=== PATIENT | female | born 1950 | race Caucasian/White ===

== ENCOUNTER 2024-09-07 21:31 | Emergency (ER) | payer MEDICARE, SELFPAY ==
--- NOTE | ~2024-09-07 | XR_ITS ---
CLINICAL HISTORY: pain post fall 3 view right elbow Comparison: None Findings: Large joint effusion and the suggestion of a radial neck fracture. IMPRESSION: Large joint effusion. Questioned mildly impacted radial neck fracture. This document has been electronically signed by: Hi Lambert MD on 09/07/2024 22:55:11
[2024-09-07 21:56] VITALS: BP 147/70; PULSE 88; RESP 14; TEMP 37.2; O2SAT 97; BMI 17.4
--- NOTE | 2024-09-08 01:23 | PC.NURSE ---
Pt a&ox4, no signs of distress. Pt reports 10/10 pain when attempts to move the right arm Pts family member at bedside Plan of care ongoing.
--- NOTE | 2024-09-08 01:32 | ED.GENADULT ---
HPI - General Adult General Chief complaint: Fall Stated complaint: fall, R arm/elbow pain Time Seen by Provider: 09/08/24 01:31 History of Present Illness ED Provider: Abdoul JONES narrative: The patient is a 73-year-old woman who is generally in good health. She is visiting from [place]. She arrived at the airport in [place] today and tripped on a suitcase falling forward, landing on her right knee and her right outstretched hand. In landing on her right hand she sustained pain in her right elbow. She did not hit her head. No significant neck pain. Aside from the pain in her elbow she does not have a significant sense of injury. No numbness or tingling in the hand. Related Data Allergies Allergy/AdvReac Type Severity Reaction Status Date / Time quinine Allergy Anaphylaxis Verified 09/07/24 22:01 Review of Systems Review of Systems: Yes all other systems are reviewed and are negative PMFSH Social History Social History Smoked in Last 30 Days: Yes Use of substances other than those prescribed or required for medical reasons: No Advance Directives: No Advance Directives Information Provided: Yes Physical Exam ED Vital Signs: Vital Signs - 24 hr 09/07/24 21:56 09/08/24 02:25 09/08/24 02:26 Temperature 98.9 F 97.6 F 97.6 F Pulse Rate 88 89 89 Respiratory Rate 14 16 16 Blood Pressure 147/70 H 132/72 132/72 Pulse Oximetry 97 96 96 Oxygen Delivery Method Room Air Room Air Room Air BMI result Body Mass Index 17.4 Const Other: the patient is a slim 73-year-old woman who looks as though she is ordinarily in good health. HENMT Other: No sign of trauma to the head or the face. Eyes General: appearance normal, both eyes and all related structures Neck Other: No C-spine tenderness Resp Effort & Inspection: normal respiratory effort Skin Other: skin is intact. Neuro Other: The patient is awake and alert with normal mental status. Normal cranial nerves. She has normal strength and sensation in the right hand. Extrem Other: The patient has some generalized tenderness around the right elbow. No gross deformity. Tenderness may be maximal at the region of the radial head. Range of motion is diminished. Medications Administered Discontinued Medications Generic Name Dose Route Start Last Admin Trade Name Freq PRN Reason Stop Dose Admin Acetaminophen 650 mg 09/08/24 02:03 09/08/24 02:12 Acetaminophen 325 Mg Tablet PO 09/08/24 02:04 650 mg ONCE ONE Administration Ibuprofen 400 mg 09/08/24 02:03 09/08/24 02:12 Ibuprofen 400 Mg Tablet PO 09/08/24 02:04 400 mg ONCE ONE Administration Medical Decision Making Medical Decision Making MDM Narrative: The patient tripped and fell and landed on an outstretched right hand and presents with right elbow pain. An x-ray shows anterior posterior fat pads suggestive of a joint effusion. There is a possible suggestion of a impacted radial head fracture. I think the patient likely has an impacted radial head fracture. I explained the x-ray findings to the patient. She is visiting from [place]. She will be treated with a sling. She was given a disc of her x-rays for follow-up when she returns to [place] in several days. Discharge Plan Discharge Clinical Impression: Closed fracture of neck of right radius Patient Disposition: Home, Self-Care Instructions: Elbow Fracture (ED) Additional Instructions: The x-ray of your right elbow shows swelling of the joint which is suggestive of a probable fracture of the near end of the radius bone. Please wear the sling provided to rest the arm. You may ice the area of injury to help reduce swelling and pain. Always have a piece of dry cloth between your skin and the ice bag. You may use ibuprofen and acetaminophen as needed for pain. Please contact your regular doctor to help arrange follow up when you return to [place]. Get checked again if significantly worse at any time. Interventions: ED Discharge Assessment Last Done: 09/08/24 02:26 Discharge Date/Time: 09/08/24 02:27 Print Language: Tamazight
[2024-09-08] MEDS: Ibuprofen 400 MG TABLET PO (02:12)
[2024-09-08] MEDS: Acetaminophen 325 MG TABLET 650 MG PO (02:12)
--- NOTE | 2024-09-08 02:14 | PC.NURSE ---
Pt medicated per [facility] Plan of care ongoing
[2024-09-08 02:25] VITALS: BP 132/72; PULSE 89; RESP 16; TEMP 36.4; O2SAT 96
[2024-09-08 02:26] VITALS: BP 132/72; PULSE 89; RESP 16; TEMP 36.4; O2SAT 96
== END 2024-09-08 02:27 | disposition home or self-care (01) ==
PROVIDERS: Emergency Provider Emergency Medicine
DX: S52.131A Displaced fracture of neck of right radius, initial encounter for closed fracture (principal); W01.0XXA Fall on same level from slipping, tripping and stumbling without subsequent striking against object, initial encounter; M25.561 Pain in right knee; Y93.89 Activity, other specified; Y92.520 Airport as the place of occurrence of the external cause; Y99.9 Unspecified external cause status
CPT/HCPCS: 73080; 99284

== ENCOUNTER → 2024-09-07 22:30 | Outpatient (BNV) | payer OTHER, SELFPAY | PROVIDERS: Visit Provider Radiology Vascular & Interventional Radiology | DX: M25.521 Pain in right elbow (principal); M25.421 Effusion, right elbow | CPT/HCPCS: 73080 ==